=== PATIENT | female | born 1980 | race Hispanic/Latino ===

== ENCOUNTER 2017-04-10 05:06 | Inpatient (IN) | payer MEDICAID, OTHER, SELFPAY ==
[2017-04-10 05:55] VITALS: BMI 30.9
[2017-04-10] MEDS ORDERED: LR / Pitocin 40 units/1000 ml 1,000 ML IV PRN (14:05)
[2017-04-10] MEDS ORDERED: Ondansetron HCl/PF 4 MG/2 ML Vial IVP PRN ×2 (14:05→16:01)
[2017-04-10] MEDS ORDERED: Ibuprofen 800 MG TAB PO PRN (14:05)
[2017-04-10] MEDS ORDERED: Misoprostol 200 MCG TAB PR PRN (14:05)
[2017-04-10] MEDS ORDERED: Lidocaine 1% (PF) 30 ML VIAL SC PRN (14:05)
[2017-04-10] MEDS ORDERED: Acetaminophen 500 MG TAB PO PRN (14:05)
[2017-04-10] MEDS ORDERED: Promethazine HCl 25 MG/ML VIAL IM PRN ×2 (14:05→16:01)
[2017-04-10] MEDS: Lactated Ringer's 1,000 ML IV SCH ×2 (14:35→21:08)
[2017-04-10 14:56] LABS: Mean Corpuscular HGB CONC 33.8 g/dL (32.0-36.0); Mean Corpuscular Hemoglobin 30.6 pg (27.0-31.0); Mean Corpuscular Volume 90.6 fl (81.0-99.0); Mean Platelet Volume 8.8 fL (7.4-10.4); Platelet Count 180 thou/uL (130-400); RBC Distribution Width 14.2 % (11.5-14.5); Red Blood Cell (RBC) Count 4.25 mill/uL (4.20-5.40); White Blood Cell (WBC) Count 7.9 thou/uL (4.8-10.8)
[2017-04-10] MEDS ORDERED: Fentanyl 4 mcg/Marc 0.1% Cadd 100 ML ONE (15:07)
[2017-04-10 15:35] LABS: HBSAg Index 0.27 S/CO (0-0.99); Hep B Surf Ag Non-Reactive S/CO (NonReactive); Syphilis Antibody Nonreactive (Nonreactive); Syphilis Antibody Index 0.05 S/CO (<1.00 Non-Reactive)
[2017-04-10] MEDS ORDERED: Lactated Ringer's 500 ML IV PRN (16:01)
[2017-04-10] MEDS ORDERED: ePHEDrine/0.9% NaCl/PF SYRINGE 50 mg/10 ml SLOW IVP PRN (16:01)
[2017-04-10] MEDS ORDERED: diphenhydrAMINE 50 MG/ML VIAL IVP PRN (16:01)
[2017-04-10] MEDS ORDERED: Acetaminophen 325 MG TAB PO PRN (16:01)
[2017-04-10] MEDS ORDERED: Eucerin (Mineral Oil/Petrolatum,White) 30 gm Jar TOP PRN (16:01)
[2017-04-10] MEDS ORDERED: Naloxone HCl 0.4 mg/ml Vial IVP PRN ×2 (16:01)
[2017-04-10] MEDS ORDERED: Fentanyl 4mcg/Marcaine 0.1% Cassette 100 ML EPIDURAL SCH (16:15)
[2017-04-10] MEDS ORDERED: LR 500 ML/Oxytocin 10 units 500 ML IV SCH (16:15)
[2017-04-10] MEDS ORDERED: Communication Order-Pharmacy FS SCH (16:15)
--- NOTE | 2017-04-10 18:42 | PDOC.OPDEL ---
OB Operative/Delivery Note Delivery Dr/Surgeon: Dr. Johana Pollock, Dr. No Nunn Assist: Dr. Rome Wilson attending Pre-Delivery Diagnosis: active labor Procedure/Post Delivery Dx: spontaneous vaginal delivery Weeks gestation: 40 Anesthesia: epidural - Findings A Sex: female - 1 min: 8 - 5 min: 9 - Additional Findings/Plan Placenta delivered: spontaneous Repaired Obstetrical Laceration: other (2nd degree perineal w/ left labial extension) Estimated blood loss: 400 ml Compilations/Other Findings: Lacerations repaired in typical sterile fashion with 3-0 vicryl suture. Post delivery plan: routine recovery
[2017-04-10] MEDS ORDERED: diphenhydrAMINE 25 MG CAP PO PRN (19:25)
[2017-04-10] MEDS ORDERED: Adacel (T-DAP) 0.5 ML VIAL IM ONE (19:25)
[2017-04-10] MEDS ORDERED: Milk Of Magnesia 30 ML UDCUP PO PRN (19:25)
[2017-04-10] MEDS ORDERED: LR / Pitocin 40 units/1000 ml 1,000 ML IV SCH (19:25)
[2017-04-10] MEDS ORDERED: Lanolin Ointment 7 GM TUBE TOP PRN (19:25)
[2017-04-10] MEDS ORDERED: Benzocaine/Menthol 20-0.5% 60 ML CAN TOP PRN (19:25)
[2017-04-10] MEDS ORDERED: Preparation H Ointment 28 GM TUBE PR PRN (19:25)
[2017-04-10] MEDS ORDERED: Bisacodyl 10 MG SUPP PR PRN (19:25)
[2017-04-10] MEDS: Measles/Mumps/Rubella 10 MCG/0.5 ML VIAL SC ONE (20:12)
[2017-04-10] MEDS: Ibuprofen 800 MG TAB PO SCH (21:00)
[2017-04-10] MEDS: Docusate Calcium (SURFAK) 240 MG CAP PO SCH (21:00)
[2017-04-11] MEDS: Ibuprofen 800 MG TAB PO SCH ×3 (06:38→23:03)
[2017-04-11] MEDS: Lactated Ringer's 1,000 ML IV SCH ×2 (06:39→14:22)
--- NOTE | 2017-04-11 08:54 | PDOC.PP ---
Post Progress Note Post Day #: 1 Subjective: Pain well controlled. Lochia wnl. Tolerating PO. No flatus or BM yet. PO intake tolerated: yes Flatus: no Ambulation: yes Vital Signs (12 hours) Temp Pulse Resp BP Pulse Ox 04/11/17 08:13 97.9 F 72 20 112/68 97 04/11/17 04:19 97.6 F 61 20 100/58 L 04/11/17 04:00 98.1 F 78 20 04/11/17 00:00 98.1 F 78 20 04/10/17 23:36 78 20 112/68 04/10/17 22:00 77 20 125/77 04/10/17 21:03 72 20 112/67 04/10/17 21:00 97.9 F 72 20 Weight Weight 74.389 kg - Physical Examination General: NAD Cardiovascular: no m/r/g, RRR Respiratory: clear to auscultation bilaterally, non-labored breathing Abdominal: + bowel sounds, lochia (wnl), no distention, appropriately TTP Fundus firm & at: Just above umbilicus Extremities: negative homans (B) Skin: no rash Neurological: no gross focal deficits Psychiatric: A&Ox3, normal affect Result Diagrams: 04/10/17 14:30 Additional Labs: Post Labs Blood Type O POSITIVE 04/10/17 14:30 Hep Bs Antigen Non-Reactive S/CO (NonReactive) 04/10/17 14:30 (1) (spontaneous vaginal delivery) Code(s): O80 - ENCOUNTER FOR FULL-TERM UNCOMPLICATED DELIVERY Status: Acute Comment: @ 40.1 weeks delivered via - No complications - 2nd degree laceration with extension to left labia; repaired - Lochia wnl today, pain adequately controlled - Routine care - Contraception; OCP's - Director Patient Accounting for infant; TAMP (2) Intrauterine Code(s): Z34.90 - ENCNTR FOR SUPRVSN OF NORMAL , UNSP, UNSP TRIMESTER Status: Acute Comment: - Delivered via 04/10/2016 @ 17:39 - 2nd degree perineal laceration with extension to labia; repaired (3) Advanced maternal age (AMA) in Code(s): [id number] - Status: Acute Comment: - 36 year old G2 now P2 delivered via on 04/10/2016 - Adequate care - No complications (4) Positive test for herpes simplex virus (HSV) antibody Code(s): R89.4 - ABNORMAL IMMUNOLOG FINDINGS IN SPECIMENS FROM OTH ORG/TISS Status: Acute Comment: - No active infection at time of delivery (5) Chlamydia infection affecting Code(s): O98.319 - OTH INFECT W SEXL MODE OF TRANSMISS COMP PREG, UNSP TRI; A74.9 - CHLAMYDIAL INFECTION, UNSPECIFIED Status: Acute Comment: - Negative SHARITA (6) Rubella non-immune status, antepartum Code(s): O99.89 - OTH DISEASES AND CONDITIONS COMPL PREG/CHLDBRTH; Z28.3 - UNDERIMMUNIZATION STATUS Status: Acute Comment: - Needs vaccination <Chayito Flores - Last Filed: 04/11/17 08:53> Vital Signs (12 hours) Temp Pulse Resp BP Pulse Ox 04/11/17 09:02 97.9 F 72 20 98 04/11/17 08:13 97.9 F 72 20 112/68 97 04/11/17 04:19 97.6 F 61 20 100/58 L 04/11/17 04:00 98.1 F 78 20 04/11/17 00:00 98.1 F 78 20 04/10/17 23:36 78 20 112/68 Weight Weight 74.389 kg Result Diagrams: 04/10/17 14:30 Additional Labs: Post Labs Blood Type O POSITIVE 04/10/17 14:30 Hep Bs Antigen Non-Reactive S/CO (NonReactive) 04/10/17 14:30 <Maria T Menjivar - Last Filed: 04/11/17 10:37> Attending Addendum - Attending Addendum I personally evaluated the patient and discussed the management with Dr. Nunn I agree with the History, Examination, Assessment and Plan documented above with any addition or exceptions noted below- Patient without complaints. Voiding without difficulty. Afebrile VSS A/P: 1) PPD#1 s/p - continue routine care. Plan to d/c home later today if 's bilirubin not available. <Maria T Menjivar - Last Filed: 04/11/17 10:37>
[2017-04-11] MEDS ORDERED: Prenatal Vitamin 1 TAB PO SCH (09:00)
[2017-04-11] MEDS: Docusate Calcium (SURFAK) 240 MG CAP PO SCH ×2 (09:42→23:03)
[2017-04-11] MEDS: Ferrous Sulfate 325 MG TAB PO SCH ×2 (09:42→18:37)
[2017-04-11 22:46] VITALS: BP 101/55; TEMP 98.5
[2017-04-11] MEDS: Measles/Mumps/Rubella 10 MCG/0.5 ML VIAL SC ONE (23:17)
== END 2017-04-11 23:40 | disposition home or self-care (01) | DRG 774 ==
LOC: L&D/OP 05:06 → L&D 14:06 → 3SE 20:29
PROVIDERS: ADMIT Family Medicine; ATTEND Family Medicine
PROC: 10E0XZZ Delivery of Products of Conception, External Approach (ICD-10-PCS; principal; 2017-04-10)
PROC: 0KQM0ZZ Repair Perineum Muscle, Open Approach (ICD-10-PCS; 2017-04-10)
PROC: 10907ZC Drainage of Amniotic Fluid, Therapeutic from Products of Conception, Via Natural or Artificial Opening (ICD-10-PCS; 2017-04-10)
DX: O70.1 Second degree perineal laceration during delivery (principal); Z37.0 Single live birth; O98.319 Other infections with a predominantly sexual mode of transmission complicating pregnancy, unspecified trimester; Z3A.40 40 weeks gestation of pregnancy; Z20.2 Contact with and (suspected) exposure to infections with a predominantly sexual mode of transmission
CPT/HCPCS: 51701; 51702; 85027; 86780; 87340; 90707; 99285; A4216; J2001; J7120